=== PATIENT | female | born 1985 | race Caucasian/White ===

== ENCOUNTER 2016-12-05 18:55 | Emergency (ER) | payer OTHER ==
[~2016-12-05] VITALS: Ht 157.5 cm; Wt 74.8 kg
[~2016-12-05 18:55] MED LIST: ESCI10TA PO
[2016-12-05 19:00] VITALS: BP 127/75
== END 2016-12-05 21:01 | disposition home or self-care (01) ==
LOC: ER 18:57
DX: M25.562 Pain in left knee (principal); F10.20 Alcohol dependence, uncomplicated; F17.210 Nicotine dependence, cigarettes, uncomplicated; W11.XXXA Fall on and from ladder, initial encounter; Y93.89 Activity, other specified; Y92.89 Other specified places as the place of occurrence of the external cause; Y99.8 Other external cause status
CPT/HCPCS: 73564; 99284; A4606; Z7610

== ENCOUNTER 2017-05-02 16:47 | Emergency (ER) | payer OTHER ==
[~2017-05-02] VITALS: Ht 157.5 cm; Wt 81.6 kg
[2017-05-02 16:47] VITALS: BP 117/61
== END 2017-05-02 17:30 | disposition home or self-care (01) ==
LOC: ER 16:50
DX: J40 Bronchitis, not specified as acute or chronic (principal); F17.200 Nicotine dependence, unspecified, uncomplicated
CPT/HCPCS: 99283; A4606; Z7610

== ENCOUNTER 2023-07-27 11:31 | Emergency (ER) | payer BC, OTHER ==
[~2023-07-27] VITALS: Ht 157.5 cm; Wt 97.5 kg
[2023-07-27] MEDS ORDERED: MORPHINE SULFATE INJ 2 MG/ML DISP.SYRIN ONE (11:44)
[2023-07-27] MEDS ORDERED: KETOROLAC TROMETHAMINE INJ 30 MG/ML VIAL ONE (11:44)
[2023-07-27] MEDS ORDERED: diphenhydrAMINE HCL 50 MG/ML VIAL ONE (11:44)
[2023-07-27] MEDS ORDERED: KETOROLAC TROMETHAMINE INJ 30 MG/ML VIAL IV ONE (12:00)
[2023-07-27] MEDS ORDERED: MORPHINE SULFATE INJ 2 MG/ML DISP.SYRIN IV ONE (12:00)
[2023-07-27] MEDS ORDERED: diphenhydrAMINE HCL 50 MG/ML VIAL IV ONE (12:00)
[2023-07-27] MEDS ORDERED: IV NS 0.9% 500 ML BAG IV ONE (12:00)
[2023-07-27 12:55] VITALS: BP 120/75; TEMP 98.7; O2SAT 100
== END 2023-07-27 12:54 | disposition home or self-care (01) ==
LOC: ER 11:49
DX: R51.9 Headache, unspecified (principal); F17.200 Nicotine dependence, unspecified, uncomplicated
CPT/HCPCS: 99284; 96374; 96375; J1200; J1885; J7040; J2270